=== PATIENT | male | born 1955 | race Two or more races ===

== ENCOUNTER 2016-09-27 06:08 | Inpatient (IN) | payer BC, MEDICAID ==
[~2016-09-27] VITALS: Ht 170.2 cm; Wt 84.4 kg
[2016-09-27] VITALS (16 sets, daily range): BP systolic 90–163; BP diastolic 44–77
[~2016-09-27 06:08] MED LIST: AMLO5TAB2 PO; ASPI-991 PO; CYCL100C PO; GABA-534 PO; HYDR25TA4 PO; LEVE500T9 PO; MAGN400T30 PO; [UNRECOGNIZED DRUG - CODE] PO
[2016-09-27] MEDS ORDERED: LORAZEPAM INJ 2 MG/ML VIAL ONE ×2 (06:22→07:16)
[2016-09-27] MEDS ORDERED: IV NS 0.9% 1,000 ML BAG IV ONE (06:30)
[2016-09-27] MEDS ORDERED: LORAZEPAM INJ 2 MG/ML VIAL IV ONE ×2 (06:30→07:30)
[2016-09-27] MEDS ORDERED: LEVETIRACETAM (500MG) 1,500 MG in IV NS 0.9% 100 ML IV SCH (06:30)
[2016-09-27] MEDS ORDERED: LORAZEPAM INJ 2 MG/ML VIAL IM ONE (06:30)
[2016-09-27] MEDS ORDERED: LEVETIRACETAM (500MG) 500 MG/5 ML VIAL IV ONE ×2 (06:33→06:35)
--- NOTE | 2016-09-27 06:35 | NUR ---
61 YO MALE BB RA. PT IS ALERT X 0, PT GOWNED, PLACED ON TREASURY DIRECTOR. SKIN WARM AND DRY, RR EVEN AND UNLABORED. AWAITING ORDERS FROM PROVIDER
--- NOTE | 2016-09-27 06:38 | NUR ---
PT STARTED HAVING A SEIZURE WITNESSED BY MD AND RN. PT PLACED ON SEIZURE PRECAUTIONS, PT PLACED ON NON REBREATHER. PT IS ON BASKET BOTTOM MACHINE OPERATOR. WILL CONITNUE TO MONITOR
[2016-09-27 06:40] LABS: BASOPHILS % (AUTO) 0.2 % (0.0-2.0); EOSINOPHILS # (AUTO) 0.1 /CMM (0.0-0.7); EOSINOPHILS % (AUTO) 1.2 % (0.0-6.0); HEMATOCRIT 41 % (39-51); HEMOGLOBIN 13.4 g/dL (13.5-17.5); LYMPHOCYTES # (AUTO) 3.7 /CMM (0.8-4.8); LYMPHOCYTES % (AUTO) 45.9 % (20.0-44.0); MEAN CORPUSCULAR HEMOGLOBIN 28 PG (26.0-33.0); MEAN CORPUSCULAR HGB CONC 32 g/dl (31.0-36.0); MEAN CORPUSCULAR VOLUME 88 fL (80-96); MONOCYTES # (AUTO) 1.1 /CMM (0.1-1.30); MONOCYTES % (AUTO) 13.5 % (2.0-12.0); NEUTROPHILS # (AUTO) 3.2 /CMM (1.8-8.9); NEUTROPHILS % (AUTO) 39.2 % (43.0-81.0); PLATELET COUNT (AUTO) 250 /CMM (150-450); RDW COEFFICIENT OF VARIATION 13.6 (11.5-15.0); RED BLOOD CELL COUNT(AUTO) 4.72 MIL/uL (4.5-6.0); WHITE BLOOD COUNT (AUTO) 8.2 K/uL (4.3-11.0)
--- NOTE | 2016-09-27 06:40 | NUR ---
22G RIGHT FOOT IV STARTED
[2016-09-27 06:54] LABS: SERUM AMMONIA 93 umol/L (11-32)
[2016-09-27 06:57] LABS: CALCIUM, SERUM 8.6 mg/dL (8.5-10.1); CARBON DIOXIDE 20 mmol/L (21-32); CHLORIDE 100 mmol/L (98-107); CREATININE 1.4 mg/dL (0.6-1.3); GLUCOSE 137 mg/dL (74-106); POTASSIUM 3.3 mmol/L (3.5-5.1); SODIUM SERUM 138 mmol/L (136-145); UREA NITROGEN, BLOOD 21 mg/dL (7-18)
[2016-09-27 06:59] LABS: INR 0.97 (0.87-1.13); PROTHROMBIN TIME 10.4 SECS (9.5-12.7)
[2016-09-27 07:03] LABS: TROPONIN I < 0.017 ng/mL (0.00-0.056)
[2016-09-27 07:04] LABS: ALANINE AMINOTRANSFERASE 87 U/L (12-78); ALBUMIN 3.5 g/dL (3.4-5.0); ALKALINE PHOSPHATASE 111 U/L (46-116); ASPARTATE AMINOTRANSFERASE 66 U/L (15-37); BILIRUBIN,DIRECT 0.1 mg/dL (0.0-0.2); BILIRUBIN,TOTAL 0.5 mg/dL (0.2-1.0); TOTAL PROTEIN, SERUM 8.4 g/dL (6.4-8.2)
[2016-09-27 07:24] LABS: THYROID STIMULATING HORMONE 3.696 uIU/mL (0.358-3.74)
--- NOTE | 2016-09-27 07:35 | NUR ---
REPORT GIVEN TO SHELBIE FOR LIDA
[2016-09-27] MEDS ORDERED: MYCO250C PO (07:48)
[2016-09-27] MEDS ORDERED: FLUD0.1T PO (07:48)
[2016-09-27] MEDS ORDERED: ESOM20CA PO (07:48)
[2016-09-27] MEDS ORDERED: IBUP-1955 PO (07:48)
[2016-09-27] MEDS ORDERED: TRIA15CR2 TP (07:51)
--- NOTE | 2016-09-27 07:57 | NUR ---
SEIZURE PRECAUTOUS DONE PT REPOSITIONED FOPR COMFORT CONT TO MONITOR
--- NOTE | 2016-09-27 07:59 | NUR ---
PANEL ON-CALL PAGED
[2016-09-27 08:52] LABS: APPEARANCE,URINE SL CLOUDY (CLEAR); BILIRUBIN,URINE NEGATIVE (NEGATIVE); BLOOD, URINE NEGATIVE Ery/uL (NEGATIVE); COLOR,URINE YELLOW (YELLOW); KETONES,URINE NEGATIVE (NEGATIVE); LEUKOCYTE ESTERASE ,URINE NEGATIVE (NEGATIVE); NITRITE, URINE NEGATIVE (NEGATIVE); PROTEIN,URINE TRACE mg/dl (NEGATIVE); UGLUCOSE NEGATIVE (NEGATIVE); UROBILINOGEN,URINE 0.2 EU/dL (0.2)
[2016-09-27 09:02] LABS: BACTERIA,URINE None seen /HPF (None Seen); RBC,URINE NONE SEEN /HPF (0-2); SQUAMOUS EPITHELIAL CELL,UR Few /HPF (None Seen); WBC,URINE 0-2 /HPF (0-3)
[2016-09-27] MEDS ORDERED: IV NS 0.9% 1,000 ML IV PRN (10:59)
[2016-09-27] MEDS ORDERED: MAGNESIUM HYDROXIDE 30 ML UDC PO PRN (11:00)
[2016-09-27] MEDS ORDERED: IBUPROFEN 600 MG TABLET PO PRN (11:00)
[2016-09-27] MEDS ORDERED: PANTOPRAZOLE 40 MG VIAL IV SCH (11:00)
[2016-09-27] MEDS ORDERED: Z GUARD REMEDY 2 OZ OINT TP PRN (11:00)
[2016-09-27] MEDS ORDERED: MAG HYDROX/AL HYDROX/SIMETH 30 ML UDC PO PRN (11:00)
[2016-09-27] MEDS ORDERED: ZOLPIDEM TARTRATE 5 MG TABLET PO PRN (11:00)
[2016-09-27] MEDS ORDERED: ONDANSETRON HCL/PF 4 MG/2 ML VIAL IVP PRN (11:00)
[2016-09-27] MEDS ORDERED: ACETAMINOPHEN 325 MG TABLET PO PRN (11:00)
[2016-09-27] MEDS ORDERED: HYDROCODONE/APAP 5/325MG 1 EACH TABLET PO PRN (11:00)
--- NOTE | 2016-09-27 11:00 | NUR ---
PT STABLE FOR TRANSFER
--- NOTE | 2016-09-27 12:00 | NUR ---
Admitted patient from ER with Dx of seizure. Patient lethargic, oriented x 4, and follows command. Vitals stable. Neuro check done, no deficits noted except lethargy. Per Daughter Jess, patient history include liver transplant and stroke 2009, no noted residual. Able to swallow, tolerated well lunch but maintained aspiration and seizure precautions.
[2016-09-27] MEDS: ASPIRIN EC 81 MG TABLET.DR PO SCH (12:44)
[2016-09-27] MEDS: AMLODIPINE BESYLATE 5 MG TABLET PO SCH (12:44)
[2016-09-27] MEDS: HYDROCHLOROTHIAZIDE 25 MG TABLET PO SCH (12:44)
[2016-09-27] MEDS: FLUDROCORTISONE 0.1 MG TABLET PO SCH (12:44)
[2016-09-27] MEDS: FAMOTIDINE/PF INJ 20 MG/2 ML VIAL IV SCH ×2 (12:44→22:21)
[2016-09-27] MEDS: GABAPENTIN 300 MG CAPSULE PO SCH ×2 (12:46→17:27)
--- NOTE | 2016-09-27 13:00 | NUR ---
Patient IV on the left arm infiltrated and left foot IV to be removed per Dr. Ulloa. Attempted 2x to start IV line. Midline ordered per Dr. Ulloa
[2016-09-27] MEDS: MYCOPHENOLATE MOFETIL 250 MG CAPSULE PO SCH ×2 (13:30→17:27)
--- NOTE | 2016-09-27 14:00 | NUR ---
IV fluids on hold, pending midline insertion.
[2016-09-27] MEDS ORDERED: POTASSIUM CHLORIDE 20 MEQ TAB.PRT.SR PO SCH (15:00)
--- NOTE | 2016-09-27 18:16 | NUR ---
Dr Roberson aware of elevated ammonia of 93, patient remain lethargic but arousable and able to converse.
[2016-09-27] MEDS: LEVETIRACETAM (250 MG) 250 MG TABLET PO SCH (21:34)
[2016-09-27] MEDS ORDERED: FAMOTIDINE/PF INJ 20 MG/2 ML VIAL IV ONE (21:50)
[2016-09-27] MEDS: TRAMADOL HCL 50 MG TABLET PO PRN (22:45)
--- NOTE | 2016-09-27 22:51 | NUR ---
GAS MAIN AND LINE FITTER - PT. C/O GEN. PAIN (CHRONIC), PT. STATED. TRAMADOL 50MG. PO ADM. NO S/S OF SZ. ACTIVITY. SIDERAILS OF BED ARE PADDED. PT. IS A&O X4. HEART MONITOR SHOWS SB/NO ECTOPY IN THE 40-50'S. SBP'S ARE WNL. PT.IS ON R/A & HAS A GOOD APPETITE. PT. IS USING URINAL & IS ON A REG. DIET. AFEBRILE. NO EDEMA. ALL PULSES ARE PALPABLE X [address] HAS BOTH PORTS PATENT TO FLUSH. SKIN INTACT. THE ONLY NEURO DEFICIT IS THE PUPILS ARE-LEFT/6/R & RT./7/SLUGGISH. PT. STATES EYESIGHT IS FINE. CONT. POC. Addendum: 09/28/16 at 0745 by MIRANDA HOOKS RN AT 21:00 LAST NIGHT, PT. WAS DUE FOR PEPCID 20MG/IVP. THE MED ROOM REFRIGERATOR DOOR WOULD NOT OPEN. SO, NATIVIDAD SHARMA BROUGHT UP A PEPCID FROM ANOTHER UNIT. THIS IS EXPLAINED UNDER COMMENTS IN THE OMNICELL. DR. MATHUR WAS PHONED AT 6AM FOR MAGNESIUM REPLACEMENT FOR MAG LEVEL OF 1.2. 2 GRAMS ORDERED. ONE GRAM WAS HUNG DURING REPORT TO KIRK STRANGE. GOOD UOP. PT'S HR REMAINED SB WITH BBB. PT. SLEPT FOR MOST PART OF THE NIGHT & WAS ASYMPTOMATIC. CONT.POC.
[2016-09-28] VITALS (26 sets, daily range): BP systolic 71–130; BP diastolic 27–91
[2016-09-28 05:03] LABS: BASOPHILS % (AUTO) 0.5 % (0.0-2.0); EOSINOPHILS # (AUTO) 0.1 /CMM (0.0-0.7); EOSINOPHILS % (AUTO) 1.9 % (0.0-6.0); HEMATOCRIT 33 % (39-51); HEMOGLOBIN 11.1 g/dL (13.5-17.5); LYMPHOCYTES # (AUTO) 1.5 /CMM (0.8-4.8); LYMPHOCYTES % (AUTO) 37.1 % (20.0-44.0); MEAN CORPUSCULAR HEMOGLOBIN 29 PG (26.0-33.0); MEAN CORPUSCULAR HGB CONC 34 g/dl (31.0-36.0); MEAN CORPUSCULAR VOLUME 86 fL (80-96); MONOCYTES # (AUTO) 0.5 /CMM (0.1-1.30); MONOCYTES % (AUTO) 12.5 % (2.0-12.0); NEUTROPHILS # (AUTO) 1.9 /CMM (1.8-8.9); PLATELET COUNT (AUTO) 177 /CMM (150-450); RDW COEFFICIENT OF VARIATION 13.5 (11.5-15.0); RED BLOOD CELL COUNT(AUTO) 3.84 MIL/uL (4.5-6.0)
[2016-09-28] MEDS: TRAMADOL HCL 50 MG TABLET PO PRN ×3 (05:18→16:57)
[2016-09-28 05:20] LABS: ALBUMIN 2.4 g/dL (3.4-5.0); BILIRUBIN,TOTAL 0.5 mg/dL (0.2-1.0); CALCIUM, SERUM 8.1 mg/dL (8.5-10.1); CREATININE 1.1 mg/dL (0.6-1.3); PHOSPHORUS 3.5 mg/dL (2.5-4.9); POTASSIUM 3.5 mmol/L (3.5-5.1); TOTAL PROTEIN, SERUM 6.4 g/dL (6.4-8.2)
[2016-09-28 05:31] LABS: MAGNESIUM 1.2 mg/dL (1.8-2.4)
[2016-09-28] MEDS ORDERED: Magnesium 1GM/D5W 100ML PREMIX 100 ML IV ONE (06:45)
[2016-09-28] MEDS ORDERED: Magnesium 1GM/D5W 100ML PREMIX PIGGYBACK IV ONE (07:00)
--- NOTE | 2016-09-28 07:30 | NUR ---
CRYSTAL FLAT GRINDER RECEIVED PATIENT AWAKE ALERT ORIENTED X 3 AFEBRILE COMPLAINT OF RECURRENT PAIN OVER RIGHT UPPER QUADRANT ABDOMEN AREA, PATIENT HAD LIVER TRANSPLANT 0900 PATIENT COMPLAINT OF TRAMADOL NOT WORKING, SEEN AND EXAMINE BY DR. DA SILVA MORPHINE ORDERED BY MD. MD IS AWARE OF THE ALLERGY BUT NOTIFIED HIM THAT PATIENT WANTED MORPHINE SINCE HE HAD THIS MEDICATION BEFORE AND IT WORKED FOR HIS PAIN NO OTHER UNTOWARD MANIFESTATION SEEN TRANSFERRED TO TELE PER MD AWAITING FOR BED
[2016-09-28] MEDS ORDERED: Magnesium 1GM/D5W 100ML PREMIX 100 ML IV SCH (08:00)
[2016-09-28] MEDS: ASPIRIN EC 81 MG TABLET.DR PO SCH (08:19)
[2016-09-28] MEDS: HYDROCHLOROTHIAZIDE 25 MG TABLET PO SCH (08:22)
[2016-09-28] MEDS: MYCOPHENOLATE MOFETIL 250 MG CAPSULE PO SCH ×2 (08:22→16:55)
[2016-09-28] MEDS: AMLODIPINE BESYLATE 5 MG TABLET PO SCH (08:23)
[2016-09-28] MEDS: FLUDROCORTISONE 0.1 MG TABLET PO SCH (08:23)
[2016-09-28] MEDS: GABAPENTIN 300 MG CAPSULE PO SCH ×3 (08:23→16:55)
[2016-09-28] MEDS: MULTIVIT, IRON, MIN NO. 8, FA 1 TAB PO SCH (08:23)
[2016-09-28] MEDS: LEVETIRACETAM (250 MG) 250 MG TABLET PO SCH ×2 (08:24→20:18)
[2016-09-28] MEDS: FAMOTIDINE/PF INJ 20 MG/2 ML VIAL IV SCH ×2 (08:25→20:18)
[2016-09-28] MEDS ORDERED: MORPHINE SULFATE INJ 2 MG/ML DISP.SYRIN IV ONE (09:36)
[2016-09-28] MEDS: LACTULOSE 10 G/15 ML UDC (PYXIS) PO SCH ×3 (10:15→21:41)
--- NOTE | 2016-09-28 10:50 | NUR ---
SELF PAY COLLECTOR NOTES RECEIVED PATIENT FROM ICU VIA BED, PATIENT ALERT AND ORIENTED, NO DISTRESS NOTED, NO SHORTNESS OF BREATH, SEIZURE PRECAUTION OBSERVED, SIDERAILS COVERED WITH PADDINGS, SKIN ASSESSMENT COMPLETED, SKIN DRY AND INTACT, YOANA MIDLINE FLUSHES WELL, TELE MONITOR SHOWS SINUS ZAFAR HR 46, ALL NEEDS ATTENDED AND ANTICIPATED, CALL LIGHT WITHIN REACH, WILL CONTINUE TO MONITOR.
--- NOTE | 2016-09-28 11:00 | NUR ---
REPLENISHMENT ANALYST REPORT GIVEN TO 3 CHEMA RN TRANSFERRED ON A BED WITH MARKETING ANALYTICS ANALYST CONNECTED TO PATIENT NO UNTOWARD PROBLEM SEEN ENDORSED TO NOD
[2016-09-28] MEDS ORDERED: MORPHINE SULFATE INJ 4 MG/ML DISP.SYRIN ONE ×2 (14:50→14:59)
--- NOTE | 2016-09-28 18:46 | NUR ---
TRADE MARKER NOTES PATIENT ALERT AND ORIENTED, ABLE TO VERBALIZE NEEDS, NO DISTRESS NOR PAIN AT THIS TIME, ALL DUE MEDS GIVEN ORDERED, YOANA MIDLINE PATENT AND FLUSHES WELL, TELE MONITOR SHOWS SB 50 LOWEST, DR. QUIGLEY AWARE, PATIENT ASSISTED TO RESTROOM AND USES WALKER, ALL NEEDS ATTENDED AND ANTICIPATED, CALL LIGHT WITHIN REACH, SAFETY AND SEIZURE PRECAUTION OBSERVED AT ALL TIMES, WILL ENDORSE TO BABY FORMULA WORKER FOR LIDA.
--- NOTE | 2016-09-28 19:05 | NUR ---
EMBEDDED FIRMWARE DEVELOPER NOTES: RECEIVED PT IN BED AND IS AWAKE AND RESTING IN BED. ABLE TO VERBALIZE NEEDS. NO DISTRESS NOR PAIN AT THIS TIME. YOANA MIDLINE PATENT AND FLUSHES WELL, TELE MONITOR SHOWS SB. CALL LIGHT WITHIN PT'S REACH, SAFETY AND SEIZURE PRECAUTION OBSERVED AT ALL TIMES. WILL CONTINUE TO MONITOR PT.
[2016-09-29] VITALS: BP 107/65
--- NOTE | 2016-09-29 01:00 | NUR ---
BOX SEALING MACHINE OPERATOR NOTES: GAVE REPORT TO KIRK ABRAMS. ALL NEEDS WERE ATTENDED AND ANTICIPATED FOR. PT IS IN BED ASLEEP AND RESTING. NO DISTRESS NOR PAIN AT THIS TIME. YOANA MIDLINE PATENT AND FLUSHES WELL. TELE MONITOR SHOWS SB 50. CALL LIGHT WITHIN PT'S REACH, SAFETY AND SEIZURE PRECAUTION OBSERVED AT ALL TIMES. ENDORSED TO JOSE ALBERTO FOR LIDA.
--- NOTE | 2016-09-29 01:07 | NUR ---
RN NOTES RECEIVED REPORT FROM PAOLO BRADLEY. WILL CONTINUE WITH Pt's LIDA.
[2016-09-29 04:00] VITALS: BP 105/67
[2016-09-29] MEDS: LACTULOSE 10 G/15 ML UDC (PYXIS) PO SCH ×3 (04:31→16:11)
--- NOTE | 2016-09-29 06:44 | NUR ---
RN CLOSING NOTES NO SIGNIFICANT CHANGES IN Pt's CONDITION. NO S/S OF ACUTE DISTRESS OR SOB NOTED DURING THE NIGHT. ALL NEEDS MET AND ATTENDED TO. SAFETY MEASURES IN PLACE. TELE READING SB 50's. WILL ENDORSE TO DAYSHIFT RN FOR Pt's LIDA.
[2016-09-29 07:16] VITALS: BP 110/72
--- NOTE | 2016-09-29 07:25 | NUR ---
RN NOTES RECEIVED PT IN BED, SLEEPING. NO SOB OR SIGNS OR DISTRESS. SAFETY MEASURES ARE IN PLACE. WILL CONTINUE TO MONITOR.
[2016-09-29 08:00] VITALS: BP 110/72
[2016-09-29] MEDS: AMLODIPINE BESYLATE 5 MG TABLET PO SCH (09:00)
[2016-09-29] MEDS: HYDROCHLOROTHIAZIDE 25 MG TABLET PO SCH (09:00)
[2016-09-29] MEDS: FLUDROCORTISONE 0.1 MG TABLET PO SCH (09:01)
[2016-09-29] MEDS: MYCOPHENOLATE MOFETIL 250 MG CAPSULE PO SCH ×2 (09:01→16:58)
[2016-09-29] MEDS: ASPIRIN EC 81 MG TABLET.DR PO SCH (09:01)
[2016-09-29] MEDS: GABAPENTIN 300 MG CAPSULE PO SCH ×3 (09:01→16:58)
[2016-09-29] MEDS: FAMOTIDINE/PF INJ 20 MG/2 ML VIAL IV SCH (09:01)
[2016-09-29] MEDS: LEVETIRACETAM (250 MG) 250 MG TABLET PO SCH (09:01)
[2016-09-29] MEDS: MULTIVIT, IRON, MIN NO. 8, FA 1 TAB PO SCH (09:01)
[2016-09-29 12:00] VITALS: BP 111/69
[2016-09-29] MEDS: Magnesium 1GM/D5W 100ML PREMIX 100 ML IV SCH ×4 (13:51→16:59)
[2016-09-29 16:00] VITALS: BP 107/69
--- NOTE | 2016-09-29 19:13 | NUR ---
PT IS AWAKE AND ALERT. MAGNESIUM LEVEL IS 2.3 AFTER REPLACEMENT GIVEN. PER DR WHITLOCK ORDER, PT OKAY TO DISCHARGE. DISCHARGE PAPERS AND BELONGINGS LIST WERE SIGNED AND EDUCATION WAS GIVEN. PT WAS TOLD TO FOLLOW UP WITH PCP WITHIN 1 WEEK. PT STATED HE WOULD MAKE THE APPOINTMENT HIMSELF. IV AND ID BAND WERE REMOVED. PT IN ROOM, WAITING TO BE PICKED UP BY DAUGHTER OR SISTER. WILL ENDORSE TO FOOD AND BEVERAGE INTERN RN.
--- NOTE | 2016-09-29 19:27 | NUR ---
PT WAS DISCHARGED BY PRIVATE CAR WITH DAUGHTER. PT LEFT IN STABLE CONDITION. DISCHARGE EDUCATION WAS GIVEN.
== END 2016-09-29 19:15 | disposition home or self-care (01) | DRG 53 ==
LOC: ER 06:09 → ICU 10:36 → TELE 09-28 10:44 → MED 09-29 17:58
PROVIDERS: ADMIT Internal Medicine; ATTEND Internal Medicine
DX: G40.909 Epilepsy, unspecified, not intractable, without status epilepticus (principal); N17.0 Acute kidney failure with tubular necrosis; G93.41 Metabolic encephalopathy; Z94.4 Liver transplant status; Z86.73 Personal history of transient ischemic attack (TIA), and cerebral infarction without residual deficits; Z98.1 Arthrodesis status; Z79.899 Other long term (current) drug therapy; Z79.82 Long term (current) use of aspirin; K74.60 Unspecified cirrhosis of liver; D64.9 Anemia, unspecified; J98.11 Atelectasis; Z88.6 Allergy status to analgesic agent; Z88.1 Allergy status to other antibiotic agents; Z88.5 Allergy status to narcotic agent; Z88.0 Allergy status to penicillin
CPT/HCPCS: 36415; 70450-TC; 71010-TC; 80048-TC; 80053-TC; 80061-TC; 80076-TC; 80305; 81000-TC; 82140-TC; 83735-TC; 84100-TC; 84443-TC; 84484-TC; 85025-TC; 85730-TC; 87081-TC; 87086-TC; A4606; J1953; J2060; J2270; J3475; J3490; J7030; J7050; J7502; J7517; Z7610

== ENCOUNTER 2020-08-22 06:15 | Inpatient (IN) | payer BC ==
[~2020-08-22] VITALS: Ht 170.2 cm; Wt 84.8 kg
[~2020-08-22 06:15] MED LIST changes: +AMLO-212 PO; -AMLO5TAB2 PO; +ASPI-1420 PO; -ASPI-991 PO; +ESOM20CA PO; +FLUD0.1T PO; +IBUP-1955 PO; -MAGN400T30 PO; +MYCO250C PO; +TRIA15CR2 TP
--- NOTE | 2020-08-22 06:20 | NUR ---
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 PATIENT ALERT TO NAME, TOUCH, RR EVEN, NO SIGNS OF SOB NOTED. PATIENT CONNECTED TO MONITOR, SEZURE PRECAUTIONS INITIATED. Addendum: 08/22/20 at 0920 by LSARGSYAN report given to nurse Silva
--- NOTE | 2020-08-22 06:22 | NUR ---
DAUGHTER, MADI: [phone]
[2020-08-22 06:50] LABS: BASOPHILS % (AUTO) 0.3 % (0.0-2.0); EOSINOPHILS % (AUTO) 1.1 % (0.0-6.0); HEMATOCRIT 43 % (39-51); HEMOGLOBIN 14.2 g/dL (13.5-17.5); LYMPHOCYTES % (AUTO) 45.8 % (20.0-44.0); MEAN CORPUSCULAR HGB CONC 33 g/dl (31.0-36.0); MEAN CORPUSCULAR VOLUME 89 fL (80-96); MONOCYTES # (AUTO) 0.7 K/uL (0.1-1.30); MONOCYTES % (AUTO) 15.2 % (2.0-12.0); NEUTROPHILS # (AUTO) 1.6 K/uL (1.8-8.9); NEUTROPHILS % (AUTO) 37.6 % (43.0-81.0); PLATELET COUNT (AUTO) 216 K/uL (150-450); RED BLOOD CELL COUNT(AUTO) 4.87 MIL/uL (4.5-6.0); WHITE BLOOD COUNT (AUTO) 4.3 K/uL (4.3-11.0)
--- NOTE | 2020-08-22 06:55 | NUR ---
PATIENT TAKEN TO CT
--- NOTE | 2020-08-22 07:02 | NUR ---
PATIENT RETURNED FROM CT
--- NOTE | 2020-08-22 07:33 | NUR ---
[facility] [phone]
[2020-08-22 08:08] LABS: CALCIUM, SERUM 8.5 mg/dL (8.5-10.1); CREATININE 1.6 mg/dL (0.6-1.3); POTASSIUM 4.2 mmol/L (3.5-5.1)
[2020-08-22] MEDS ORDERED: GABA300C PO (08:21)
[2020-08-22] MEDS ORDERED: CYCL25CA6 PO (08:21)
[2020-08-22] MEDS ORDERED: METO25TA4 PO (08:21)
[2020-08-22] MEDS ORDERED: APIX5TAB PO (08:21)
[2020-08-22 08:30] LABS: ALBUMIN 2.5 g/dL (3.4-5.0); BILIRUBIN,DIRECT 0.3 mg/dL (0.0-0.2); BILIRUBIN,TOTAL 0.8 mg/dL (0.2-1.0); TOTAL PROTEIN, SERUM 6.9 g/dL (6.4-8.2)
--- NOTE | 2020-08-22 08:37 | NUR ---
room 114-1
--- NOTE | 2020-08-22 08:55 | NUR ---
AUTHORIZATION TO ADMIT OBTAINED PER LORI IN ADMITTING DEPT.
--- NOTE | 2020-08-22 09:21 | NUR ---
report given to nurse Ricardo
--- NOTE | 2020-08-22 09:42 | NUR ---
The patient is transfered to assigned room in stable condition and per policy.
[2020-08-22 09:50] VITALS: BP 110/83
--- NOTE | 2020-08-22 09:50 | NUR ---
RN NOTES RECEIVED PT AWAKE, A/O X3-4. WALLISIAN SPEAKING BUT UNDERSTANDS TURKISH. STABLE ON ROOM AIR. NO SOB OR ANY S/S OF RESPIRATORY DISTRESS NOTED. IV ACCESS ON R HAND #20 INTACT, PATENT AND FLUSHED. COMPLAINS OF PAIN AT L HAND #20, REMOVED ASEPTICALLY. BELONGING LIST SIGNED. PLACED IN BED, LOCKED AND IN LOWEST POSITION WITH SIDE RAILS UP X2. NO PAIN REPORTED. SAFETY MEASURES IN PLACE. CALL LIGHT WITHIN REACH. WILL CONTINUE TO MONITOR.
[2020-08-22] MEDS ORDERED: ZOLPIDEM TARTRATE 5 MG TABLET PO PRN (10:00)
[2020-08-22] MEDS ORDERED: ACETAMINOPHEN 325 MG TABLET PO PRN (10:00)
[2020-08-22] MEDS ORDERED: MAGNESIUM HYDROXIDE 30 ML UDC PO PRN (10:00)
[2020-08-22] MEDS ORDERED: Z GUARD REMEDY 2 OZ OINT TP PRN (10:00)
[2020-08-22] MEDS ORDERED: MAG HYDROX/AL HYDROX/SIMETH 30 ML UDC PO PRN (10:00)
[2020-08-22] MEDS ORDERED: ONDANSETRON HCL/PF 4 MG/2 ML VIAL IVP PRN (10:00)
[2020-08-22] MEDS ORDERED: HYDROCODONE/APAP 5/325MG TABLET PO PRN (10:00)
[2020-08-22 11:02] LABS: EOSINOPHILS % (MANUAL) 2 % (0-4); LYMPHOCYTES % (MANUAL) 48 % (16-48); MONOCYTES % (MANUAL) 16 % (0-11.0); NEUTROPHILS % (MANUAL) 34 (42-76)
[2020-08-22 12:00] VITALS: BP 108/73
[2020-08-22] MEDS: GABAPENTIN 300 MG CAPSULE PO SCH ×2 (12:47→17:12)
[2020-08-22 16:00] VITALS: BP 114/69
[2020-08-22] MEDS: LEVETIRACETAM (250 MG) 250 MG TABLET PO SCH (17:11)
[2020-08-22] MEDS: MYCOPHENOLATE MOFETIL 250 MG CAPSULE PO SCH (17:12)
[2020-08-22] MEDS: APIXABAN 5 MG TABLET PO SCH (17:26)
[2020-08-22] MEDS: IBUPROFEN 600 MG TABLET PO PRN (19:00)
--- NOTE | 2020-08-22 19:10 | NUR ---
RN CLOSING NOTES NO SIGNIFICANT CHANGES THROUGHOUT THE SHIFT. NO SOB OR ANY PAIN REPORTED. ALL DUE MEDS GIVEN. NEEDS ATTENDED. KEPT CLEAN AND DRY. RESTING COMFORTABLY IN BED. ENDORSED TO NIGHT RN FOR LIDA.
--- NOTE | 2020-08-22 19:56 | NUR ---
AERODYNAMICS ENGINEER: CONTINUITY OF CARE Patient in bed, awake. Tolerating room air, no Addendum: 08/22/20 at 2006 by IRINA RAO RN CONTINUATION NOTES ABOVE: No c/o sob. Afib controlled in the Tele monitor HR 90's, in no acute distress. Urine to be collected for test. Seizure precaution, maintained safety.
[2020-08-22 21:21] VITALS: BP 120/81
[2020-08-22] MEDS ORDERED: IBUPROFEN 400 MG TABLET PO ONE (23:00)
--- NOTE | 2020-08-22 23:09 | NUR ---
HOT MILL ROLLER: Patient aller Addendum: 08/22/20 at 2311 by IRINA RAO RN DISREGARD INCOMPLETE NOTES ABOVE, KEYBOARD MAL FUNCTION.
--- NOTE | 2020-08-22 23:11 | NUR ---
BUTADIENE CONVERTER HELPER: PAIN Patient c/o right leg and arm pain, on Motrin [id number] not due until 0700am, patient listed allergies to Acetaminophen and Hydrocodone bit. Per patient not remember if he took other pain medication. Notified MEDICAL SALES SPECIALIST Shruthi. Given Motrin 600mg one time, will reassess pain.
[2020-08-23 01:00] VITALS: BP 117/73
[2020-08-23 05:01] VITALS: BP 111/79
--- NOTE | 2020-08-23 06:36 | NUR ---
SUBWAY REPAIR SUPERVISOR: END OF SHIFT REPORT Afib controlled HR 100's in the Tele monitor, no c/o chest pain. Leg and arm pain improved with Motrin. Tolerating room air, no c/o sob. No episode of seizure. Urine specimen send to lab for test. Seizure precaution maintained. Will endorse to oncoming RN.
[2020-08-23 07:16] LABS: BASOPHILS % (AUTO) 0.6 % (0.0-2.0); EOSINOPHILS % (AUTO) 1.3 % (0.0-6.0); HEMATOCRIT 38 % (39-51); HEMOGLOBIN 12.5 g/dL (13.5-17.5); LYMPHOCYTES # (AUTO) 1.2 K/uL (0.8-4.8); LYMPHOCYTES % (AUTO) 40.9 % (20.0-44.0); MEAN CORPUSCULAR HGB CONC 33 g/dl (31.0-36.0); MEAN CORPUSCULAR VOLUME 88 fL (80-96); MONOCYTES # (AUTO) 0.5 K/uL (0.1-1.30); MONOCYTES % (AUTO) 16.9 % (2.0-12.0); NEUTROPHILS # (AUTO) 1.2 K/uL (1.8-8.9); NEUTROPHILS % (AUTO) 40.3 % (43.0-81.0); PLATELET COUNT (AUTO) 131 K/uL (150-450); RED BLOOD CELL COUNT(AUTO) 4.31 MIL/uL (4.5-6.0); WHITE BLOOD COUNT (AUTO) 2.9 K/uL (4.3-11.0)
[2020-08-23 07:45] LABS: CALCIUM, SERUM 7.9 mg/dL (8.5-10.1); CREATININE 1.6 mg/dL (0.6-1.3); MAGNESIUM 1.9 mg/dL (1.8-2.4); PHOSPHORUS 4.5 mg/dL (2.5-4.9); POTASSIUM 4.4 mmol/L (3.5-5.1)
[2020-08-23 08:00] VITALS: BP 106/72
[2020-08-23] MEDS ORDERED: ESOMEPRAZOLE MAG TRIHYDRATE 20 MG CAPSULE.DR PO SCH (09:00)
[2020-08-23] MEDS: MYCOPHENOLATE MOFETIL 250 MG CAPSULE PO SCH ×2 (09:48→17:15)
[2020-08-23] MEDS: METOPROLOL SUCCINATE 25 MG TAB.SR.24H PO SCH (09:48)
[2020-08-23] MEDS: GABAPENTIN 300 MG CAPSULE PO SCH ×3 (09:49→17:15)
[2020-08-23] MEDS: LEVETIRACETAM (250 MG) 250 MG TABLET PO SCH ×2 (09:49→17:15)
[2020-08-23] MEDS: HYDROCHLOROTHIAZIDE 25 MG TABLET PO SCH (09:49)
[2020-08-23] MEDS: AMLODIPINE BESYLATE 5 MG TABLET PO SCH (09:50)
[2020-08-23] MEDS: MULTIVIT W/MINERALS 1 TAB TABLET PO SCH (09:50)
[2020-08-23] MEDS: APIXABAN 5 MG TABLET PO SCH ×2 (09:53→17:16)
[2020-08-23] MEDS: PANTOPRAZOLE 40 MG TABLET.DR PO SCH (09:55)
[2020-08-23 10:20] LABS: EOSINOPHILS % (MANUAL) 1 % (0-4); LYMPHOCYTES % (MANUAL) 40 % (16-48); MONOCYTES % (MANUAL) 15 % (0-11.0); NEUTROPHILS % (MANUAL) 44 (42-76)
[2020-08-23 12:00] VITALS: BP 113/73
[2020-08-23] MEDS: IBUPROFEN 600 MG TABLET PO PRN (12:57)
[2020-08-23] MEDS: IV NS 0.9% 1,000 ML IV SCH ×2 (12:58→23:38)
[2020-08-23 15:47] LABS: BILIRUBIN,URINE SMALL (NEGATIVE); COLOR,URINE YELLOW (YELLOW); LEUKOCYTE ESTERASE ,URINE NEGATIVE (NEGATIVE); NITRITE, URINE NEGATIVE (NEGATIVE); PROTEIN,URINE NEGATIVE (NEGATIVE); UGLUCOSE NEGATIVE (NEGATIVE); UROBILINOGEN,URINE 0.2 EU/dL (0.2)
[2020-08-23 16:00] VITALS: BP 104/67
--- NOTE | 2020-08-23 19:14 | NUR ---
PRODUCTION OPERATOR: CONTINUITY OF CARE Patient in bed, awake. Afib controlled HR 100's in the Tele monitor. Ongoing IVF. Seizure precaution, maintained safety.
[2020-08-23 20:32] VITALS: BP 116/79
[2020-08-24 01:02] VITALS: BP 129/79
[2020-08-24] MEDS: IBUPROFEN 600 MG TABLET PO PRN (02:12)
--- NOTE | 2020-08-24 02:16 | NUR ---
HAND FOLDER: PAIN Patient c/o leg and arm pain. Given Motrin, will reassess pain.
[2020-08-24] MEDS: IV NS 0.9% 1,000 ML IV SCH ×2 (06:00→15:50)
--- NOTE | 2020-08-24 06:18 | NUR ---
NUT CHOPPER: END OF SHIFT REPORT Afib controlled HR 97 in the Tele monitor. No seizure episode. Leg and arm pain improved with Motrin. Ongoing IVF. Afebrile. Seizure precaution maintained. Will endorse to oncoming RN.
[2020-08-24 06:42] VITALS: BP 135/81
[2020-08-24 06:59] LABS: BASOPHILS % (AUTO) 0.6 % (0.0-2.0); EOSINOPHILS % (AUTO) 2.1 % (0.0-6.0); HEMATOCRIT 36 % (39-51); HEMOGLOBIN 11.8 g/dL (13.5-17.5); LYMPHOCYTES # (AUTO) 0.9 K/uL (0.8-4.8); LYMPHOCYTES % (AUTO) 32.5 % (20.0-44.0); MEAN CORPUSCULAR HGB CONC 33 g/dl (31.0-36.0); MEAN CORPUSCULAR VOLUME 88 fL (80-96); MONOCYTES # (AUTO) 0.5 K/uL (0.1-1.30); MONOCYTES % (AUTO) 18.9 % (2.0-12.0); NEUTROPHILS # (AUTO) 1.2 K/uL (1.8-8.9); NEUTROPHILS % (AUTO) 45.9 % (43.0-81.0); PLATELET COUNT (AUTO) 118 K/uL (150-450); RED BLOOD CELL COUNT(AUTO) 4.06 MIL/uL (4.5-6.0); WHITE BLOOD COUNT (AUTO) 2.7 K/uL (4.3-11.0)
[2020-08-24 07:04] LABS: CALCIUM, SERUM 7.8 mg/dL (8.5-10.1); CREATININE 1.3 mg/dL (0.6-1.3); POTASSIUM 4.5 mmol/L (3.5-5.1)
--- NOTE | 2020-08-24 07:05 | NUR ---
HOP TRAINER: TRANSFERRED TO [facility] Patient transferred to room 310 by bed accompanied with KIRK Wilder. Patient transferred with his personal belongings. KIRK Wilder gave report to KIRK Young for continuity of care at the end of shift.
--- NOTE | 2020-08-24 07:46 | NUR ---
HYDRO PNEUMATIC TESTER OPENING NOTES RECEIVED PATIENT AWAKE, A/O X4. SLOVENIAN SPEAKING BUT UNDERSTANDS TURKS AND CAICOS ISLANDER. STABLE ON ROOM AIR - NO SOB OR ANY DISTRESS NOTED. IV ACCESS TO RIGHT HAND #20 - INTACT, PATENT - RUNNING NS @ 100ML/HR. PATIENT STATES NO PAIN AT THIS TIME. SAFETY MEASURES IMPLEMENTED. CALL LIGHT WITHIN REACH. WILL CONTINUE TO MONITOR.
[2020-08-24 08:00] VITALS: BP 128/86
[2020-08-24] MEDS ORDERED: IBUPROFEN 400 MG TABLET PO ONE (08:00)
[2020-08-24] MEDS: LEVETIRACETAM (250 MG) 250 MG TABLET PO SCH ×2 (08:14→16:45)
[2020-08-24] MEDS: PANTOPRAZOLE 40 MG TABLET.DR PO SCH (08:14)
[2020-08-24] MEDS: MULTIVIT W/MINERALS 1 TAB TABLET PO SCH (08:14)
[2020-08-24] MEDS: GABAPENTIN 300 MG CAPSULE PO SCH ×3 (08:14→16:45)
[2020-08-24] MEDS: MYCOPHENOLATE MOFETIL 250 MG CAPSULE PO SCH ×2 (08:14→16:45)
[2020-08-24] MEDS: AMLODIPINE BESYLATE 5 MG TABLET PO SCH (08:20)
[2020-08-24] MEDS: METOPROLOL SUCCINATE 25 MG TAB.SR.24H PO SCH (08:21)
[2020-08-24] MEDS: HYDROCHLOROTHIAZIDE 25 MG TABLET PO SCH (08:21)
[2020-08-24] MEDS: APIXABAN 5 MG TABLET PO SCH ×2 (08:25→16:46)
[2020-08-24] MEDS ORDERED: MORPHINE SULFATE INJ 2 MG/ML DISP.SYRIN IV ONE ×3 (09:00→22:00)
[2020-08-24 09:17] LABS: BAND % (MANUAL) 1 % (0.0-5.0); EOSINOPHILS % (MANUAL) 3 % (0-4); LYMPHOCYTES % (MANUAL) 29 % (16-48); MONOCYTES % (MANUAL) 14 % (0-11.0); NEUTROPHILS % (MANUAL) 53 (42-76)
[2020-08-24 16:10] VITALS: BP 100/62
--- NOTE | 2020-08-24 18:39 | NUR ---
TEMPERING OVEN OPERATOR CLOSING NOTE PATIENT CURRENTLY LYING IN BED, AWAKE, A/O X4. MAURITIAN SPEAKING BUT UNDERSTANDS CYMRO. STABLE ON ROOM AIR - NO SOB OR ANY DISTRESS NOTED. ON TELE MONITOR - AFIB. IV ACCESS TO RIGHT FINGER #20 - INTACT, PATENT - RUNNING NS @ 100ML/HR. AMBULATORY WITH ASSIST. PATIENT STATES NO PAIN AT THIS TIME. SAFETY MEASURES IMPLEMENTED. CALL LIGHT WITHIN REACH. WILL ENDORSE TO PLC PROGRAMMER FOR LIDA.
--- NOTE | 2020-08-24 19:15 | NUR ---
TELE/RN OPENING NOTE RECEIVED PATIENT RESTING IN BED. AWAKE, ALERT AND ORIENTED X 4. ABLE TO MAKE NEEDS KNOWN. NO COMPLAINTS OF PAIN AT THIS TIME. CONTINUES ON ROOM AIR WITH NO S/SX OF RESPIRATORY DISTRESS NOTED. IV ACCESS TO RIGHT FINGER #22G INTACT AND PATENT. CONTINUES ON IVF NS 09.%. SEIZURE PRECAUTIONS IN PLACE. CALL LIGHT WITHIN REACH. ASPIRATION, FALL AND SAFETY PRECAUTIONS MAINTAINED. WILL CONTINUE TO MONITOR. Addendum: 08/24/20 at 2014 by MARICARMEN VARGAS RN TELE MONITOR READING AFIB HR 88
[2020-08-24 20:00] VITALS: BP 142/98
[2020-08-24] MEDS ORDERED: MORPHINE SULFATE INJ 2 MG/ML DISP.SYRIN IJ ONE (21:40)
[2020-08-24] MEDS: GUAIFENESIN/D-METHORPHAN HB 5 ML UDC PO PRN (22:03)
--- NOTE | 2020-08-24 23:30 | NUR ---
TELE/RN NOTE PATIENT WITH C/O BLE PAIN AND REQUESTING MORPHINE. PATIENT ALSO COMPLAINING OF DRY COUGH. NEW ORDERS FOR MORPHINE 2MG IV X 1 AND ROBITUSSIN 10ML Q6HR PRN. ORDERS IMPUTED AND CARRIED OUT. WILL CONTINUE TO MONITOR.
[2020-08-25] VITALS: BP 143/76
[2020-08-25] MEDS: IV NS 0.9% 1,000 ML IV SCH (02:49)
[2020-08-25 04:00] VITALS: BP 137/80
--- NOTE | 2020-08-25 06:15 | NUR ---
TELE/RN CLOSING NOTE PATIENT CURRENTLY SLEEPING IN BED. ALERT AND ORIENTED X 4. ABLE TO MAKE NEEDS KNOWN. NO COMPLAINTS OF PAIN AT THIS TIME. CONTINUES ON ROOM AIR WITH NO S/SX OF RESPIRATORY DISTRESS NOTED. IV ACCESS TO RIGHT FINGER #22G INTACT AND PATENT. CONTINUES ON IVF NS 09.%. TELE MONITOR READING AFIB HR 80. SEIZURE PRECAUTIONS AND NEURO CHECKS IN PLACE. CALL LIGHT WITHIN REACH. ASPIRATION, FALL AND SAFETY PRECAUTIONS MAINTAINED. WILL ENDORSE PLAN OF CARE TO ONCOMING SHIFT.
[2020-08-25 06:59] LABS: BASOPHILS % (AUTO) 0.3 % (0.0-2.0); EOSINOPHILS % (AUTO) 1.9 % (0.0-6.0); HEMATOCRIT 37 % (39-51); HEMOGLOBIN 12.1 g/dL (13.5-17.5); LYMPHOCYTES # (AUTO) 0.9 K/uL (0.8-4.8); LYMPHOCYTES % (AUTO) 24.4 % (20.0-44.0); MEAN CORPUSCULAR HGB CONC 33 g/dl (31.0-36.0); MEAN CORPUSCULAR VOLUME 88 fL (80-96); MONOCYTES # (AUTO) 0.5 K/uL (0.1-1.30); MONOCYTES % (AUTO) 14.5 % (2.0-12.0); NEUTROPHILS # (AUTO) 2.2 K/uL (1.8-8.9); NEUTROPHILS % (AUTO) 58.9 % (43.0-81.0); PLATELET COUNT (AUTO) 126 K/uL (150-450); RED BLOOD CELL COUNT(AUTO) 4.21 MIL/uL (4.5-6.0); WHITE BLOOD COUNT (AUTO) 3.7 K/uL (4.3-11.0)
[2020-08-25 07:14] LABS: CALCIUM, SERUM 7.9 mg/dL (8.5-10.1); CREATININE 1.2 mg/dL (0.6-1.3); POTASSIUM 5.1 mmol/L (3.5-5.1)
[2020-08-25 07:46] VITALS: BP 119/89
--- NOTE | 2020-08-25 07:50 | NUR ---
HOME SUPPORT WORKER NOTES PT IN BED, ASLEEP, EASY TO AROUSE, ALERT AND ORIENTED, DENIES PAIN, RESPIRATIONS NORMAL, NO SEIZURE EPISODE REPORTED LAST NIGHT, SEEN BY DR. ORNELAS, DISCHARGE ORDER GIVEN, DISCHARGE AND MEDICATION INSTRUCTIONS PROVIDED TO PT, VERBALIZED UNDERSTANDING.
[2020-08-25] MEDS: PANTOPRAZOLE 40 MG TABLET.DR PO SCH (08:31)
[2020-08-25] MEDS: GABAPENTIN 300 MG CAPSULE PO SCH ×2 (08:31→13:14)
[2020-08-25] MEDS: LEVETIRACETAM (250 MG) 250 MG TABLET PO SCH (08:31)
[2020-08-25] MEDS: MULTIVIT W/MINERALS 1 TAB TABLET PO SCH (08:31)
[2020-08-25] MEDS: MYCOPHENOLATE MOFETIL 250 MG CAPSULE PO SCH (08:32)
[2020-08-25] MEDS: METOPROLOL SUCCINATE 25 MG TAB.SR.24H PO SCH (08:33)
[2020-08-25] MEDS: APIXABAN 5 MG TABLET PO SCH (08:34)
[2020-08-25 08:36] VITALS: BP 119/89
[2020-08-25] MEDS: AMLODIPINE BESYLATE 5 MG TABLET PO SCH (08:36)
[2020-08-25] MEDS ORDERED: IV NS 0.9% 1,000 ML IV PRN (10:12)
[2020-08-25] MEDS: GUAIFENESIN/D-METHORPHAN HB 5 ML UDC PO PRN (14:55)
--- NOTE | 2020-08-25 15:07 | NUR ---
JOINT MAKER MACHINE NOTES PT AWAKE, ALERT AND ORIENTED, SITTING IN BED, NO COMPLAINT OF PAIN OR ANY DISCOMFORT, ABLE TO AMBULATE TO THE BATHROOM WITH STEADY GAIT, SEEN BY DR. ORNELAS, DISCHARGE ORDER GIVEN, DISCHARGE AND MEDICATION INSTRUCTIONS PROVIDED TO PT AND SON, VERBALIZED UNDERSTANDING, BELONGINGS ACCOUNTED FOR, ASSISTED TO HOSPITAL LOBBY VIA WHEELCHAIR BY LINUX NETWORK ADMINISTRATOR, PICKED UP BY SON, LEFT VIA PRIVATE CAR IN STABLE CONDITION.
== END 2020-08-25 15:05 | disposition home or self-care (01) | DRG 53 ==
LOC: ER 06:16 → TELE1 09:27 → TELE 08-24 06:56
PROVIDERS: ADMIT Family Medicine; ATTEND Family Medicine
DX: G40.909 Epilepsy, unspecified, not intractable, without status epilepticus (principal); N17.0 Acute kidney failure with tubular necrosis; E44.0 Moderate protein-calorie malnutrition; Z94.4 Liver transplant status; E87.1 Hypo-osmolality and hyponatremia; D72.821 Monocytosis (symptomatic); D72.820 Lymphocytosis (symptomatic); Z86.73 Personal history of transient ischemic attack (TIA), and cerebral infarction without residual deficits; Z87.891 Personal history of nicotine dependence; Z20.822 Contact with and (suspected) exposure to COVID-19; I10 Essential (primary) hypertension; Z88.6 Allergy status to analgesic agent; Z88.1 Allergy status to other antibiotic agents; Z88.5 Allergy status to narcotic agent; Z88.0 Allergy status to penicillin; Z79.82 Long term (current) use of aspirin; Z79.899 Other long term (current) drug therapy; E86.1 Hypovolemia; I12.9 Hypertensive chronic kidney disease with stage 1 through stage 4 chronic kidney disease, or unspecified chronic kidney disease; N18.9 Chronic kidney disease, unspecified; G62.9 Polyneuropathy, unspecified; K21.9 Gastro-esophageal reflux disease without esophagitis; R94.5 Abnormal results of liver function studies; K74.60 Unspecified cirrhosis of liver
CPT/HCPCS: 36415; 70450-TC; 71045-TC; 80048-TC; 80061-TC; 80076-TC; 82140-TC; 82962-TC; 83735-TC; 84100-TC; 85025-TC; 87081-TC; C9803; G0378; J2270; J7030; J7515; J7517

== ENCOUNTER 2021-02-06 23:05 | Inpatient (IN) | payer BC ==
[~2021-02-06] VITALS: Ht 170.2 cm; Wt 94.3 kg
[~2021-02-06 23:05] MED LIST changes: +APIX5TAB PO; -ASPI-1420 PO; -CYCL100C PO; +CYCL25CA6 PO; -FLUD0.1T PO; -GABA-534 PO; +GABA300C PO; +METO25TA4 PO; -TRIA15CR2 TP
--- NOTE | 2021-02-06 23:32 | NUR ---
BIBDAUGTHER. HEADACHE X 10 DAYS. PT A/O X4, NO NEURO DEFICITS. VITAL SIGNS WITHIN NORMAL LIMITS. PT ON MONITOR
[2021-02-06] MEDS ORDERED: METOCLOPRAMIDE HCL 10 MG/2 ML VIAL ONE (23:50)
[2021-02-06] MEDS ORDERED: SUMATRIPTAN SUCCINATE 6 MG/0.5 ML VIAL SQ ONE (23:50)
[2021-02-07] MEDS ORDERED: METOCLOPRAMIDE HCL 10 MG/2 ML VIAL IV ONE
[2021-02-07] MEDS ORDERED: IV NS 0.9% 500 ML BAG IV ONE
[2021-02-07] MEDS ORDERED: SUMATRIPTAN SUCCINATE 6 MG/0.5 ML VIAL SQ ONE
[2021-02-07] MEDS ORDERED: DILTIAZEM HCL 50 MG IV IV ONE (01:30)
[2021-02-07] MEDS ORDERED: DILTIAZEM HCL 50 MG IV ONE (01:37)
--- NOTE | 2021-02-07 01:45 | NUR ---
COVID SWAB COLLECTED
--- NOTE | 2021-02-07 01:55 | NUR ---
MRSA SWAB COLLECTED AND SENT TO LAB. PATIENT'S BELONGINGS LIST DONE.
[2021-02-07 01:59] LABS: BASOPHILS % (AUTO) 0.9 % (0.0-2.0); EOSINOPHILS % (AUTO) 1.4 % (0.0-6.0); HEMATOCRIT 40 % (39-51); HEMOGLOBIN 13.4 g/dL (13.5-17.5); LYMPHOCYTES # (AUTO) 1.3 K/uL (0.8-4.8); LYMPHOCYTES % (AUTO) 30.5 % (20.0-44.0); MEAN CORPUSCULAR HGB CONC 33 g/dl (31.0-36.0); MEAN CORPUSCULAR VOLUME 89 fL (80-96); MONOCYTES # (AUTO) 0.7 K/uL (0.1-1.30); MONOCYTES % (AUTO) 16.9 % (2.0-12.0); NEUTROPHILS # (AUTO) 2.1 K/uL (1.8-8.9); NEUTROPHILS % (AUTO) 50.3 % (43.0-81.0); PLATELET COUNT (AUTO) 191 K/uL (150-450); RED BLOOD CELL COUNT(AUTO) 4.51 MIL/uL (4.5-6.0); WHITE BLOOD COUNT (AUTO) 4.3 K/uL (4.3-11.0)
[2021-02-07 02:17] LABS: CARBON DIOXIDE 25 mmol/L (21-32); CHLORIDE 103 mmol/L (98-107); POTASSIUM 5.9 mmol/L (3.5-5.1); SODIUM SERUM 132 mmol/L (136-145)
[2021-02-07 02:18] LABS: CALCIUM, SERUM 7.8 mg/dL (8.5-10.1); CREATININE 1.3 mg/dL (0.6-1.3); GLUCOSE 83 mg/dL (74-106); UREA NITROGEN, BLOOD 23 mg/dL (7-18)
[2021-02-07 02:26] LABS: ALKALINE PHOSPHATASE 249 U/L (46-116); BILIRUBIN,DIRECT 0.4 mg/dL (0.0-0.2); BILIRUBIN,TOTAL 0.7 mg/dL (0.2-1.0)
[2021-02-07 02:27] LABS: ALANINE AMINOTRANSFERASE 66 U/L (12-78); ALBUMIN 2.2 g/dL (3.4-5.0); ASPARTATE AMINOTRANSFERASE 118 U/L (15-37); TOTAL PROTEIN, SERUM 7.2 g/dL (6.4-8.2)
[2021-02-07] MEDS ORDERED: FUROSEMIDE 40 MG/4 ML VIAL IV ONE (02:30)
[2021-02-07] MEDS ORDERED: SODIUM BICARBONATE SYR 50 MEQ/50 ML DISP.SYRIN IV ONE (02:30)
[2021-02-07] MEDS ORDERED: CALCIUM CHLORIDE 1,000 MG/10 ML DISP.SYRIN IV ONE (02:30)
[2021-02-07] MEDS ORDERED: ALBUTEROL FS 2.5 MG/3 ML VIAL.NEB NEB ONE (02:30)
[2021-02-07] MEDS ORDERED: FUROSEMIDE 20 MG/2 ML VIAL ONE (02:43)
[2021-02-07] MEDS ORDERED: SODIUM BICARBONATE SYR 50 MEQ/50 ML DISP.SYRIN ONE (02:44)
[2021-02-07] MEDS ORDERED: CALCIUM CHLORIDE 1,000 MG/10 ML DISP.SYRIN ONE (02:44)
[2021-02-07] MEDS ORDERED: ALBUTEROL FS 2.5 MG/3 ML VIAL.NEB ONE (03:01)
[2021-02-07] MEDS ORDERED: MAGNESIUM HYDROXIDE 30 ML UDC PO PRN (03:30)
[2021-02-07] MEDS ORDERED: ONDANSETRON HCL/PF 4 MG/2 ML VIAL IVP PRN (03:30)
[2021-02-07] MEDS ORDERED: HYDROCODONE/APAP 5/325MG TABLET PO PRN ×2 (03:30→08:00)
[2021-02-07] MEDS ORDERED: IV 1/2NS 1000 ML 1,000 ML IV PRN (03:30)
[2021-02-07] MEDS ORDERED: MAG HYDROX/AL HYDROX/SIMETH 30 ML UDC PO PRN (03:30)
[2021-02-07] MEDS ORDERED: ZOLPIDEM TARTRATE 5 MG TABLET PO PRN (03:30)
[2021-02-07] MEDS ORDERED: Z GUARD REMEDY 2 OZ OINT TP PRN (03:30)
--- NOTE | 2021-02-07 03:43 | NUR ---
tele [phone] per charge nurse to send the pt up in AM
--- NOTE | 2021-02-07 06:56 | NUR ---
daughter, beatriz: [phone]
--- NOTE | 2021-02-07 07:00 | NUR ---
CONFIGURATION TECHNICIAN NOTES RECEIVED THE PATIENT FROM ER VIA JESSICA. PATIENT ALERT AND ORIENTED TIMES 3. ARMENIN AND SOME POLISH SPEAKING. EVEN AND UNLABORED BREADS . NO PAIN, NO DISTRESS NOTED. ON TELE MONITORING WITH AFIB [address] SONIDO GANNON AND NOTIFIED THE DOCTOR. METOPROLOL 50 MG GIVEN. ALL NEEDS ATTENDED. SKIN INTACT. AMBULATORY.BED IN THE LOWEST POSITION AND LUCKED, CALL LIGHT AND TABLE WITHIN REACH, 2 SIDE RAILS UP, WILL CONTINUE TO MONITOR.
--- NOTE | 2021-02-07 07:04 | NUR ---
PATIENT TRANSFERRED UNDER ACLS
[2021-02-07 07:32] LABS: EOSINOPHILS % (MANUAL) 2 % (0-4); LYMPHOCYTES % (MANUAL) 22 % (16-48); MONOCYTES % (MANUAL) 14 % (0-11.0); NEUTROPHILS % (MANUAL) 62 (42-76)
[2021-02-07] MEDS: METOPROLOL TARTRATE 50 MG TABLET PO SCH ×2 (08:11→20:19)
[2021-02-07] MEDS: MYCOPHENOLATE MOFETIL 250 MG CAPSULE PO SCH ×2 (08:27→16:12)
[2021-02-07] MEDS: MULTIVIT W/MINERALS 1 TAB TABLET PO SCH (08:28)
[2021-02-07] MEDS: GABAPENTIN 300 MG CAPSULE PO SCH ×3 (08:28→16:12)
[2021-02-07] MEDS: AMLODIPINE BESYLATE 5 MG TABLET PO SCH (08:29)
[2021-02-07] MEDS: HYDROCHLOROTHIAZIDE 25 MG TABLET PO SCH (08:29)
[2021-02-07] MEDS ORDERED: METOPROLOL TARTRATE INJ 5 MG/5 ML AMPUL IVP PRN (08:30)
[2021-02-07] MEDS: LEVETIRACETAM (250 MG) 250 MG TABLET PO SCH ×2 (08:30→20:19)
[2021-02-07] MEDS ORDERED: METOPROLOL SUCCINATE 25 MG TAB.SR.24H PO SCH (09:00)
[2021-02-07] MEDS: APIXABAN 5 MG TABLET PO SCH ×2 (09:21→16:12)
[2021-02-07 11:00] VITALS: BP 134/89
[2021-02-07 16:00] VITALS: BP 93/65
--- NOTE | 2021-02-07 18:41 | NUR ---
MANAGER SPANISH NOTES PATIENT RESTING IN BED. PATIENT ALERT AND ORIENTED TIMES 3. ARMENIN AND SOME LATVIAN SPEAKING. EVEN AND UNLABORED BREADS . NO PAIN, NO DISTRESS NOTED. ON TELE MONITORING . ALL DUE MEDS GIVEN. NEEDS ATTENDED. SKIN INTACT. AMBULATORY.BED IN THE LOWEST POSITION AND LUCKED, CALL LIGHT AND TABLE WITHIN REACH, 2 SIDE RAILS UP, WILL ENDORSE FOR LIDA.
--- NOTE | 2021-02-07 19:30 | NUR ---
RN OPENING NOTE PATIENT IN BED, A/O X 4, ABLE TO MAKE NEEDS KNOWN. PATIENT TOLERATING ROOM AIR, NOT IN ANY RESPIRATORY DISTRESS. TELE MONITOR READS AFIB 92 BPM. PATIENT HAS A YOANA MIDLINE 18 G SL ONLY, PATENT AND INTACT. PATIENT COMPLAINS OF HEADACHE, WILL MANAGE PAIN APPROPRIATELY. SAFETY MEASURES IN PLACE: BED LOCKED AND IN LOWEST POSITION, CALL LIGHT WITHIN REACH, SIDE RAILS UP. WILL MONITOR PATIENT CLOSELY.
[2021-02-07] MEDS: MORPHINE SULFATE INJ 2 MG/ML DISP.SYRIN IV PRN (20:20)
--- NOTE | 2021-02-07 20:20 | NUR ---
RN NOTE MORPHINE ADMINISTERED FOR HEADACHE 9/10 ON PAIN SCALE 0-10
[2021-02-07 20:36] VITALS: BP 111/70
[2021-02-08 00:28] VITALS: BP 117/77
[2021-02-08] MEDS: MORPHINE SULFATE INJ 2 MG/ML DISP.SYRIN IV PRN ×2 (00:42→19:49)
--- NOTE | 2021-02-08 00:46 | NUR ---
RN NOTE PATIENT COMPLAINING OF HEADACHE 12/02, MORPHINE GIVEN. WILL REASSESS PAIN AT A LATER TIME
--- NOTE | 2021-02-08 04:04 | NUR ---
PATIENT HAS TEMP 100.0 F, COOLING MEASURES INITIATED.
[2021-02-08 04:07] VITALS: BP 121/69
--- NOTE | 2021-02-08 06:44 | NUR ---
RN CLOSING NOTE PATIENT IN BED, A/O X 4, ABLE TO MAKE NEEDS KNOWN. PATIENT TOLERATING ROOM AIR, NOT IN ANY RESPIRATORY DISTRESS. PATIENT'S TEMP AFTER COOLING MEASURES ONLY WENT DOWN TO 98.8 AT 0500. TELE MONITOR READS AFIB 108 BPM. PATIENT HAS A YOANA MIDLINE 18 G SL ONLY, PATENT AND INTACT. PATIENT COMPLAINS OF HEADACHE, ADMINISTERED MORPHINE Q4HR NEEDED. SAFETY MEASURES IN PLACE: BED LOCKED AND IN LOWEST POSITION, CALL LIGHT WITHIN REACH, SIDE RAILS UP. ALL NEEDS MET AND ATTENDED, ALL ORDERS CARRIED OUT. WILL ENDORSE TO DAY SHIFT NURSE FOR LIDA.
[2021-02-08 06:50] LABS: BASOPHILS % (AUTO) 0.2 % (0.0-2.0); EOSINOPHILS % (AUTO) 1.6 % (0.0-6.0); HEMATOCRIT 33 % (39-51); LYMPHOCYTES # (AUTO) 1.2 K/uL (0.8-4.8); LYMPHOCYTES % (AUTO) 28.9 % (20.0-44.0); MEAN CORPUSCULAR HGB CONC 33 g/dl (31.0-36.0); MEAN CORPUSCULAR VOLUME 89 fL (80-96); MONOCYTES # (AUTO) 0.8 K/uL (0.1-1.30); NEUTROPHILS # (AUTO) 2.2 K/uL (1.8-8.9); NEUTROPHILS % (AUTO) 51.3 % (43.0-81.0); PLATELET COUNT (AUTO) 185 K/uL (150-450); RED BLOOD CELL COUNT(AUTO) 3.74 MIL/uL (4.5-6.0); WHITE BLOOD COUNT (AUTO) 4.2 K/uL (4.3-11.0)
[2021-02-08 07:01] LABS: CALCIUM, SERUM 7.6 mg/dL (8.5-10.1); CREATININE 1.3 mg/dL (0.6-1.3); MAGNESIUM 1.4 mg/dL (1.8-2.4); PHOSPHORUS 3.9 mg/dL (2.5-4.9); POTASSIUM 4.5 mmol/L (3.5-5.1)
[2021-02-08 08:38] LABS: EOSINOPHILS % (MANUAL) 1 % (0-4); LYMPHOCYTES % (MANUAL) 29 % (16-48); MONOCYTES % (MANUAL) 17 % (0-11.0); NEUTROPHILS % (MANUAL) 53 (42-76)
[2021-02-08 08:53] VITALS: BP_SYST 102; BP_SYST 110; BP_DIAS 64; BP_DIAS 74
[2021-02-08] MEDS: HYDROCHLOROTHIAZIDE 25 MG TABLET PO SCH (09:00)
[2021-02-08] MEDS: AMLODIPINE BESYLATE 5 MG TABLET PO SCH (09:00)
[2021-02-08] MEDS: METOPROLOL TARTRATE 50 MG TABLET PO SCH ×2 (09:00→20:59)
[2021-02-08] MEDS: MULTIVIT W/MINERALS 1 TAB TABLET PO SCH (09:12)
[2021-02-08] MEDS: LEVETIRACETAM (250 MG) 250 MG TABLET PO SCH ×2 (09:12→20:57)
[2021-02-08] MEDS: MYCOPHENOLATE MOFETIL 250 MG CAPSULE PO SCH ×2 (09:12→16:12)
[2021-02-08] MEDS: GABAPENTIN 300 MG CAPSULE PO SCH ×3 (09:12→16:12)
[2021-02-08] MEDS: PANTOPRAZOLE 40 MG TABLET.DR PO SCH (09:12)
[2021-02-08] MEDS: APIXABAN 5 MG TABLET PO SCH ×2 (09:23→16:14)
[2021-02-08] MEDS: Magnesium 1GM/D5W 100ML PREMIX 100 ML IV SCH ×4 (10:32→15:46)
[2021-02-08] MEDS ORDERED: BUTALB/APAP/CAFFEINE 1 EACH TABLET PO PRN (11:00)
[2021-02-08 12:00] VITALS: BP 116/66
[2021-02-08 13:05] LABS: BILIRUBIN,URINE NEGATIVE (NEGATIVE); COLOR,URINE YELLOW (YELLOW); LEUKOCYTE ESTERASE ,URINE NEGATIVE (NEGATIVE); NITRITE, URINE NEGATIVE (NEGATIVE); PH,URINE 6.5 (5.0-8.0); PROTEIN,URINE NEGATIVE (NEGATIVE); UGLUCOSE NEGATIVE (NEGATIVE)
[2021-02-08 13:43] LABS: BACTERIA,URINE None seen /HPF (None Seen); RBC,URINE 0-2 /HPF (0-2); SQUAMOUS EPITHELIAL CELL,UR Few /HPF (None Seen); WBC,URINE 0-2 /HPF (0-3)
--- NOTE | 2021-02-08 14:44 | NUR ---
JUKEBOX COIN COLLECTOR NOTES PT IN BED, RESTING AFTER A SHORT WALK ALONG THE HALLWAY, PER DTR, TADEO'S AUTOMATIC GRINDER OPERATOR HAS STOPPED HIS METOPROLOL AND CHANGED IN TO SOLTALOL 40 MG BID, DR ROBLERO INFORMED.
[2021-02-08] MEDS ORDERED: AMIODARONE 150 MG in IV D5W 100 ML IV ONE (15:00)
[2021-02-08] MEDS ORDERED: methylPREDNISolone SOD SUCC 125 MG/2ML VIAL IV ONE (15:30)
--- NOTE | 2021-02-08 15:54 | NUR ---
FRONT END ARCHITECT NOTES RECEIVED ORDER FROM DR. HEAD TO GIVE SOLUMEDROL 250 IV ONCE AND DEPAKOTE 250 PO ONCE, NOTED AND CARRIED OUT. DR. ROBLERO ORDERED TO START PT ON AMIO DRIP, PT FOR TRANSFER TO [facility] FOR CLOSE MONITORING, PT AWARE.
[2021-02-08] MEDS ORDERED: DIVALPROEX SODIUM 250 MG TABLET.DR PO ONE (16:00)
[2021-02-08 16:11] VITALS: BP 107/62
--- NOTE | 2021-02-08 16:43 | NUR ---
METROLOGIST NOTES PT AWAKE, ALERT AND ORIENTED, NOT IN DISTRESS, REPORT GIVEN TO [facility] KIRK ALVARADO, TRANSFERRED PT TO RM 110 VIA ACLS PROTOCOL, PT TO START ON AMIO DRIP, IN STABLE CONDITION.
--- NOTE | 2021-02-08 16:45 | NUR ---
RN NOTE RECEIVE REPORT FORM TELE NURSE. PATIENT IN STABLE CONDITION WITH NO SIGN OF DISTRESS AT TIME OF TRANSFER. WILL CONTINUE TO MONITOR
[2021-02-08] MEDS: AMIODARONE 450 MG in IV D5W 241 ML IV PRN (18:47)
--- NOTE | 2021-02-08 19:20 | NUR ---
RN CLOSING NOTE PATIENT HAVE BEEN IN STABLE CONDITION WITH NO SIGN OF DISTRESS FROM TIME OF TRANSFER TO THE UNIT. TELE BOX WAS PLACED ON THE PATIENT AND CONFIRM PROPER FUNCTION AND READING WITH MINK SLICER. AMIODARONE DRIP HAVE BEEN STARTED. PATIENT AMBULATE TO THE RESTROOM. PROPER ISOLATION PRECAUTION IN PLACE. ALL SAFETY MEASURE IN PLACE. BED ON LOWEST POSITION WITH HOB ELEVATED AND 3 SIDE RAIL UP. CALL LIGHT WITHIN REACH. REPORT WAS GIVEN TO PRODUCTION SHIFT SUPERVISOR NURSE.
--- NOTE | 2021-02-08 19:50 | NUR ---
RN OPENING NOTE RECEIVED PATIENT RESTING IN BED, A/O X4, WITH NO SIGNS OF DISTRESS OR DISCOMFORT. PATIENT ON TELE MONITORING WITH A FIB, AND HR IN THE 90'S. PATIENT ON ROOM AIR SATURATING AT 97%. LEFT UPPER MIDLINE NOTED, RUNNING AMIODARONE DRIP. PATIENT PROPER ISOLATION PRECAUTION IN PLACE. ALL SAFETY MEASURE IN PLACE. BED ON LOWEST POSITION WITH HOB ELEVATED AND 3 SIDE RAIL UP. CALL LIGHT WITHIN REACH.
--- NOTE | 2021-02-08 19:54 | NUR ---
RN NOTES CALLED DR. ROBLERO, ADVISED THAT AM SHIFT STARTED AMIO DRIP @1847 AND HR AT THAT TIME IS AT 90s; afib. ASKED HIM ABOUT ANY PROTOCOL ABOUT IT WHEN IT COMES TO HR MONITORING; HE SAID REGARDLESS THE HR; OUR GOAL IS TO CONVERT PT FROM AFIB TO SINUS. RN ACKNOWLEDGED. INSECTICIDE MIXER MADE AWARE. WILL CONTINUE TO MONITOR AND ASSESS THROUGHOUT THE SHIFT. WILL KEEP DR. ROBLERO UPDATED FOR ANY SIGNIFICANT CHANGES.
[2021-02-08 20:00] VITALS: BP 116/77
[2021-02-08] MEDS: MUPIROCIN OINT 2% 22 GM TUBE NS SCH (21:00)
[2021-02-09] VITALS: BP 98/57
[2021-02-09] MEDS: AMIODARONE 450 MG in IV D5W 241 ML IV PRN ×3 (01:01→17:45)
[2021-02-09 04:00] VITALS: BP 110/70
--- NOTE | 2021-02-09 06:41 | NUR ---
RN CLOSING NOTE PATIENT RESTING IN BED, A/O X4, WITH NO SIGNS OF DISTRESS OR DISCOMFORT. PATIENT ON TELE MONITORING WITH CONTROLLED A FIB, AND HR OF 70. PATIENT ON ROOM AIR SATURATING AT 97%. LEFT UPPER MIDLINE NOTED, RUNNING AMIODARONE DRIP AT 0.5MG/ 20MLHR A THIS TIME .ALL PATIENT NEEDS MET DURING THE SHIFT. PATIENT PROPER ISOLATION PRECAUTION IN PLACE. ALL SAFETY MEASURE IN PLACE. BED ON LOWEST POSITION WITH HOB ELEVATED AND 3 SIDE RAIL UP. CALL LIGHT WITHIN REACH. WILL ENDORSE PLAN OF CARE FOR ONCOMING NURSE.
--- NOTE | 2021-02-09 07:30 | NUR ---
RN NOTE REPORT REC'D AT BEDSIDE. PT IN BED AWAKE, ALERT/OX4. NO SOB. ON RA. WITH AMIODARONE INFUSION RUNNING @0.5 MCG/MIN CONTROLLED AFIB AT THIS TIME. SAFETY MEASURES IMPLEMENTED. WILL MONITOR FOR ANY CHANGE IN CONDITON.
[2021-02-09] MEDS: PANTOPRAZOLE 40 MG TABLET.DR PO SCH (07:56)
[2021-02-09] MEDS: MORPHINE SULFATE INJ 2 MG/ML DISP.SYRIN IV PRN ×3 (07:58→20:58)
[2021-02-09 08:00] VITALS: BP 97/59
--- NOTE | 2021-02-09 08:00 | NUR ---
RN NOTE MEDICATED WITH MORPHINE 1 MG IVP ORDERED FOR PAIN WITH RELIEF. NO SOB NOTED.
[2021-02-09] MEDS: MULTIVIT W/MINERALS 1 TAB TABLET PO SCH (08:48)
[2021-02-09] MEDS: GABAPENTIN 300 MG CAPSULE PO SCH ×3 (08:50→17:06)
[2021-02-09] MEDS: MYCOPHENOLATE MOFETIL 250 MG CAPSULE PO SCH ×2 (08:51→17:06)
[2021-02-09] MEDS: APIXABAN 5 MG TABLET PO SCH ×2 (08:52→17:06)
[2021-02-09] MEDS: LEVETIRACETAM (250 MG) 250 MG TABLET PO SCH ×2 (08:53→20:56)
[2021-02-09] MEDS: HYDROCHLOROTHIAZIDE 25 MG TABLET PO SCH (09:00)
[2021-02-09] MEDS: AMLODIPINE BESYLATE 5 MG TABLET PO SCH (09:00)
[2021-02-09] MEDS: METOPROLOL TARTRATE 50 MG TABLET PO SCH ×2 (09:00→20:57)
[2021-02-09] MEDS: MUPIROCIN OINT 2% 22 GM TUBE NS SCH ×3 (09:05→20:59)
[2021-02-09 12:32] VITALS: BP 112/76
--- NOTE | 2021-02-09 14:00 | NUR ---
RN NOTE PATIENT SEEN BY DEE RAMESH, UPDATED REGARDING PATIENT CURRENT CONDITION.
--- NOTE | 2021-02-09 14:40 | NUR ---
RN NOTE PATIENT SEEN BY DR. ROBLERO, PER MD CONTINUE AMIODARONE DRIP FOR ANOTHER 24 HOURS.
[2021-02-09 16:00] VITALS: BP 110/60
[2021-02-09 16:16] LABS: HEMATOCRIT 35 % (39-51); HEMOGLOBIN 11.1 g/dL (13.5-17.5); LYMPHOCYTES # (AUTO) 0.8 K/uL (0.8-4.8); LYMPHOCYTES % (AUTO) 4.7 % (20.0-44.0); MEAN CORPUSCULAR HGB CONC 32 g/dl (31.0-36.0); MEAN CORPUSCULAR VOLUME 90 fL (80-96); MONOCYTES # (AUTO) 0.6 K/uL (0.1-1.30); MONOCYTES % (AUTO) 3.6 % (2.0-12.0); NEUTROPHILS # (AUTO) 15.1 K/uL (1.8-8.9); NEUTROPHILS % (AUTO) 91.7 % (43.0-81.0); PLATELET COUNT (AUTO) 222 K/uL (150-450); RED BLOOD CELL COUNT(AUTO) 3.86 MIL/uL (4.5-6.0); WHITE BLOOD COUNT (AUTO) 16.4 K/uL (4.3-11.0)
[2021-02-09 16:27] LABS: CALCIUM, SERUM 7.6 mg/dL (8.5-10.1); CREATININE 1.7 mg/dL (0.6-1.3); POTASSIUM 4.6 mmol/L (3.5-5.1)
[2021-02-09 16:35] LABS: BILIRUBIN,TOTAL 0.7 mg/dL (0.2-1.0); TOTAL PROTEIN, SERUM 6.5 g/dL (6.4-8.2)
--- NOTE | 2021-02-09 18:40 | NUR ---
RN NOTE PT IN BED AWAKE. NO SOB. DENIES HEADACHE AT THIS MOMENT. AMIODARONE IV INFUSING WELL TO YOANA MIDLINE. DUE MEDS WERE GIVEN ORDERED. ON TELE MONITOR SHOWED CONTROLLED AFIB- 80. SAFETY MEASURES OBSERVED. WILL ENDORSE TO NOC RN FOR CONTINUATION OF CARE
[2021-02-09 20:00] VITALS: BP 102/71
--- NOTE | 2021-02-09 20:00 | NUR ---
RN NOTE RECEIVED PATIENT IN BED, AWAKE, ALERT, AND VERBALLY RESPONSIVE. ABLE TO MAKE NEEDS KNOWN. BREATHING EVEN AND UNLABORED. DENIES FEELING SHORTNESS OF BREATH. TOLERATING ROOM AIR AT THIS TIME. DENIES COUGH/CONGESTION. DENIES CHEST PAIN. DENIES FEELING DIZZINESS, OR FEELINGS OF SYNCOPE. PATIENT ON TELE MONITORING. A-FIB, AT 89 BPM AT THIS TIME. CONTROLLED. ON AMIODARONE DRIP AT 0.5MG/MIN AT THIS TIME. NOTED WITH LEFT UPPER ARM MIDLINE, PATENT, NO INFILTRATION NOTED. SKIN WARM AND DRY. COMPLAINS OF MILD HEADACHE AT THIS TIME. PATIENT ASSISTED TO THE RESTROOM. BED LOW, IN LOCKED POSITION, CALL LIGHT WITHIN REACH.
--- NOTE | 2021-02-09 21:09 | NUR ---
RN NOTE PATIENT COMPLAINING OF HEADACHE AT THIS TIME. STATES THAT THE PAIN RADIATES TO HIS RIGHT SIDE OF HIS FACE. DENIES FEELING NAUSEA/VOMITING, DENIES FEELING LIGHTHEADED. ADMINISTERED MORPHINE 4MG, PER MD ORDER. WILL CONTINUE TO MONITOR. CALL LIGHT WITHIN REACH.
--- NOTE | 2021-02-09 22:55 | NUR ---
RN NOTE PATIENT REFUSED BACTROBAN OINTMENT TO THE NARES. EXPLAINED THE PURPOSE 3X, STILL REFUSED.
[2021-02-10] VITALS: BP 105/66
--- NOTE | 2021-02-10 00:30 | NUR ---
RN NOTE PATIENT STABLE AT THIS TIME. ALL NEEDS ATTENDED. AMIODARONE DRIP ONGOING. NO INFILTRATION NOTED. WILL CONTINUE TO MONITOR
[2021-02-10] MEDS: MORPHINE SULFATE INJ 2 MG/ML DISP.SYRIN IV PRN ×2 (03:43→08:27)
--- NOTE | 2021-02-10 03:43 | NUR ---
RN NOTE PATIENT COMPLAINING OF HEADACHE WITH PAIN RATING OF 8/10. PATIENT NOTED WITH MOANING. STATES PAIN IS ON RIGHT SIDE OF HEAD. VITAL SIGNS WNL AT THIS TIME. DENIES FEEING NAUSEA/VOMITING, DENIES FEELING LIGHTHEADED. LIGHTS DIMMED. ADMINISTERED MORPHINE 4MG/2ML VIA IVP PER MD ORDER. WILL CONTINUE TO MONITOR. CALL LIGHT WITHIN REACH.
[2021-02-10 04:00] VITALS: BP 103/68
[2021-02-10] MEDS: AMIODARONE 450 MG in IV D5W 241 ML IV PRN (05:14)
--- NOTE | 2021-02-10 07:34 | NUR ---
RN MORNING NOTE PT RECEIVED IN BED WITH HOB AT 30 DEGREES. PT IS ON RA SAT 98% NO SIGNS OF LABORED BREATHING OR DISTRESS. PT IS AOX4, ON TELE MONITOR A FIB HR @65. PT HAS BRP AND IS AMBULATORY. PT IV ACCESS L UA MIDLINE 18G INFUSING AMIODARONE 0.5MG/MIN @20 ML/HR. JEWELRY BENCH MOLDER NURSE ENDORSED 0.5MG/MIN. AMIODARONE WILL COMPLETE THIS SHIFT. BED IS LOCKED IN LOWEST POSITION X2 GUARDRAILS. ALL HOSPITAL PROTOCOLS ARE IN PLACE AND ALL SAFETY MEASURES ARE IN PLACE. WILL CONTINUE TO MONITOR THIS SHIFT.
[2021-02-10] MEDS: PANTOPRAZOLE 40 MG TABLET.DR PO SCH (07:42)
[2021-02-10 08:00] VITALS: BP 103/66
--- NOTE | 2021-02-10 08:00 | NUR ---
RN NOTE ACCIDENTALLY CHARTED UNDER WRONG USER ACCOUNT.
[2021-02-10] MEDS: APIXABAN 5 MG TABLET PO SCH (08:49)
[2021-02-10] MEDS: GABAPENTIN 300 MG CAPSULE PO SCH (08:49)
[2021-02-10] MEDS: HYDROCHLOROTHIAZIDE 25 MG TABLET PO SCH (08:50)
[2021-02-10] MEDS: AMLODIPINE BESYLATE 5 MG TABLET PO SCH (08:50)
[2021-02-10 08:51] VITALS: BP 103/66
[2021-02-10] MEDS: MULTIVIT W/MINERALS 1 TAB TABLET PO SCH (08:51)
[2021-02-10] MEDS: METOPROLOL TARTRATE 50 MG TABLET PO SCH (08:51)
[2021-02-10] MEDS: MYCOPHENOLATE MOFETIL 250 MG CAPSULE PO SCH (08:51)
[2021-02-10] MEDS: LEVETIRACETAM (250 MG) 250 MG TABLET PO SCH (08:52)
[2021-02-10] MEDS: MUPIROCIN OINT 2% 22 GM TUBE NS SCH (08:59)
[2021-02-10] MEDS ORDERED: METO50TA16 PO (09:49)
[2021-02-10] MEDS ORDERED: AMLO-212 PO (09:49)
[2021-02-10] MEDS ORDERED: APIX5TAB PO (09:49)
[2021-02-10] MEDS ORDERED: OXYC-133 PO (09:53)
--- NOTE | 2021-02-10 11:45 | NUR ---
RN NOTE DC PT DC'D TO HOME IN STABLE CONDITION. DC INSTRUCTIONS GIVEN AND EXPLAINED TO PT; PT VERBALIZED UNDERSTANDING. ALL PAPERWORK SIGNED AND COMPLETED. ALL BELONGINGS SENT HOME WITH PT. L UA MIDLINE CATHETER REMOVED; CATH TIP COMPLETE AND INTACT; NO COMPLICATIONS. PT PICKED UP AND DAUGHTER IN PRIVATE CAR.
== END 2021-02-10 14:16 | disposition home or self-care (01) | DRG 201 ==
LOC: ER 23:06 → TELE 02-07 06:46 → TELE1 02-08 16:20 → TELE-TD 02-08 16:33
PROVIDERS: ADMIT Internal Medicine; ATTEND Internal Medicine
PROC: 05HC33Z Insertion of Infusion Device into Left Basilic Vein, Percutaneous Approach (ICD-10-PCS; principal; 2021-02-07)
DX: I48.0 Paroxysmal atrial fibrillation (principal); N17.0 Acute kidney failure with tubular necrosis; E87.1 Hypo-osmolality and hyponatremia; K74.60 Unspecified cirrhosis of liver; E11.42 Type 2 diabetes mellitus with diabetic polyneuropathy; G40.909 Epilepsy, unspecified, not intractable, without status epilepticus; Z94.4 Liver transplant status; Z86.73 Personal history of transient ischemic attack (TIA), and cerebral infarction without residual deficits; I10 Essential (primary) hypertension; E87.5 Hyperkalemia; K21.9 Gastro-esophageal reflux disease without esophagitis; Z20.822 Contact with and (suspected) exposure to COVID-19; E78.5 Hyperlipidemia, unspecified; Z88.6 Allergy status to analgesic agent; Z88.1 Allergy status to other antibiotic agents; Z88.5 Allergy status to narcotic agent; Z88.0 Allergy status to penicillin; Z79.01 Long term (current) use of anticoagulants; Z79.899 Other long term (current) drug therapy; Z87.891 Personal history of nicotine dependence; E11.65 Type 2 diabetes mellitus with hyperglycemia; E87.6 Hypokalemia
CPT/HCPCS: 36415; 70450-TC; 71045-TC; 80048-TC; 80053-TC; 80076-TC; 81001; 83735-TC; 83880; 84100-TC; 84484-TC; 85025-TC; 85730-TC; 87040-TC; 87081-TC; 93307-TC; C9803; G0378; J0282; J1940; J2270; J2765; J2930; J3030; J3475; J3490; J7040; J7050; J7060; J7515; J7517